=== PATIENT | female | born 1970 | race Caucasian/White ===

== ENCOUNTER 2017-10-28 09:22 | Inpatient (IN) | payer OTHER ==
[~2017-10-28] VITALS: Ht 172.7 cm; Wt 104.3 kg
[2017-10-28] MEDS ORDERED: LR 1,000 ML IV.SOLN IV ONE (14:45)
[2017-10-28] MEDS ORDERED: fentaNYL CITRATE/PF 100 MCG/2 ML AMP IVP ONE (14:45)
[2017-10-28] MEDS ORDERED: fentaNYL CITRATE 250 MCG/5 ML AMP IV ONE (14:45)
[2017-10-28] MEDS ORDERED: SEVOFLURANE 15 MIN GAS INH ONE (14:45)
[2017-10-28] MEDS ORDERED: ROCURONIUM BROMIDE 10 MG/ML (ZEMURON) IV ONE (14:45)
[2017-10-28] MEDS ORDERED: NS IRRIG SOLN 1000 ML IR ONE (14:45)
[2017-10-28] MEDS ORDERED: ONDANSETRON HCL 4 MG/2 ML VIAL IVP ONE (14:45)
[2017-10-28] MEDS ORDERED: BUPIVACAINE LIPOSOME/PF 266 MG/20 ML VIAL INFIL ONE (14:45)
[2017-10-28] MEDS ORDERED: MIDAZOLAM HCL 5 MG/5 ML VIAL IVP ONE (14:45)
[2017-10-28] MEDS ORDERED: PROPOFOL 200MG/ 20ML VIAL (DIPRIVAN) IV ONE (14:45)
[2017-10-28] MEDS ORDERED: NS 100 ML BAG IV ONE (14:45)
[2017-10-28] MEDS ORDERED: LR 1,000 ML IV SCH (16:26)
[2017-10-28] MEDS ORDERED: METOCLOPRAMIDE HCL 10 MG/2 ML VIAL IVP PRN (16:30)
[2017-10-28] MEDS ORDERED: HYDROmorphone 1 MG INJ. 1 MG/ML AMPUL IVP PRN ×3 (16:30→17:30)
[2017-10-28] MEDS ORDERED: HYDROmorphone 2 MG/ML VIAL IVP PRN (16:30)
[2017-10-28] MEDS ORDERED: HYDROcodone/ACETAMIN 5-325 MG TAB (NORCO/ VICODIN) PO PRN (17:30)
[2017-10-28] MEDS ORDERED: ACETAMINOPHEN 325 MG TABLET PO PRN (17:30)
[2017-10-28] MEDS ORDERED: ONDANSETRON HCL 4 MG/2 ML VIAL IVP PRN (17:30)
[2017-10-28] MEDS ORDERED: LISI10TA5 PO (18:10)
[2017-10-28] MEDS: MORPHINE 4 MG/ML INJ. SYRINGE ONE ×2 (18:13→18:25)
[2017-10-28] MEDS ORDERED: MORPHINE 2 MG/ML INJ. SYRINGE IVP PRN (18:15)
[2017-10-28 20:00] VITALS: BP_SYST 151
[2017-10-28] MEDS ORDERED: MORPHINE 4 MG/ML INJ. SYRINGE IVP PRN ×2 (20:00)
[2017-10-28] MEDS ORDERED: KETOROLAC TROMETHAMINE 15 MG VIAL IVP PRN (20:00)
[2017-10-28] MEDS ORDERED: CEFAZOLIN 1 GM IVPB PREMIX 100 ML IV ONE (20:01)
[2017-10-28] MEDS: CEFAZOLIN 1 GM IVPB PREMIX 50 ML IV SCH (20:44)
[2017-10-28 20:46] VITALS: BP_SYST 154
[2017-10-28] MEDS ORDERED: CARISOPRODOL 350 MG TABLET PO PRN (22:15)
[2017-10-28] MEDS ORDERED: LORazepam 2 MG/ML VIAL IVP PRN (22:15)
[2017-10-28] MEDS ORDERED: PANTOPRAZOLE SODIUM 80 MG in NS 100 ML IV ONE (22:15)
[2017-10-28] MEDS ORDERED: MORPHINE SULFATE 10 MG/ML VIAL IVP PRN (22:15)
[2017-10-28] MEDS ORDERED: cloNIDine HCL 0.1 MG TABLET PO PRN (22:15)
[2017-10-28] MEDS ORDERED: PANTOPRAZOLE SODIUM 40 MG/VIAL (PROTONIX) ONE (22:21)
[2017-10-29 00:58] VITALS: BP_SYST 140
[2017-10-29] MEDS: CEFAZOLIN 1 GM IVPB PREMIX 50 ML IV SCH (05:21)
[2017-10-29 06:36] LABS: BASOPHILS % (AUTO) 0.3 % (0.0-2.0); EOSINOPHILS % (AUTO) 0.5 % (0.0-4.0); HEMATOCRIT 32.3 % (36-48); HEMOGLOBIN 10.6 g/dL (12.0-16.0); LYMPHOCYTES # (AUTO) 1.5 K/uL (1.0-5.5); LYMPHOCYTES % (AUTO) 16.8 % (20.5-51.5); MEAN CORPUSCULAR HEMOGLOBIN 27 pg (27-31); MEAN CORPUSCULAR HGB CONC 33 % (32-36); MEAN CORPUSCULAR VOLUME 81 fL (79.0-98.0); MONOCYTES # (AUTO) 0.6 K/uL (0.0-1.0); MONOCYTES % (AUTO) 6.2 % (1.7-9.3); NEUTROPHILS # (AUTO) 6.8 K/uL (1.8-7.7); NEUTROPHILS % (AUTO) 76.2 % (40.0-70.0); PLATELET COUNT (AUTO) 413 K/uL (130-430); RED BLOOD CELL COUNT(AUTO) 4.01 MIL/uL (4.2-6.2); RED CELL DISTRIBUTION WIDTH 17.4 % (9.0-15.0); WHITE BLOOD COUNT (AUTO) 8.9 K/uL (4.8-10.8)
[2017-10-29 06:43] LABS: ALANINE AMINOTRANSFERASE 16 U/L (12-78); ASPARTATE AMINOTRANSFERASE 22 U/L (10-37); CALCIUM 8.3 mg/dL (8.4-11.0); CHLORIDE 107 mmol/L (98-107); CREATININE 0.61 mg/dL (0.55-1.30); GLUCOSE 106 mg/dL (70-99); POTASSIUM 3.8 mmol/L (3.5-5.1); SODIUM SERUM 138 mmol/L (136-145); TOTAL BILIRUBIN 0.5 mg/dL (0.0-1.0); UREA NITROGEN, BLOOD 8 mg/dL (8-21)
[2017-10-29 07:33] LABS: ANION GAP < 3 (5-15); GFR AFRICAN AMERICAN 136 mL/min (>90)
[2017-10-29 08:29] VITALS: BP_SYST 151
[2017-10-29] MEDS ORDERED: PANTOPRAZOLE SODIUM 40 MG/VIAL (PROTONIX) IVP SCH (09:00)
[2017-10-29] MEDS ORDERED: LISINOPRIL 10 MG TABLET (PRINIVIL) PO SCH (09:00)
[2017-10-29 11:20] LABS: TOTAL IRON BIND. CAPACITY 409 ug/dL (250-450)
[2017-10-29 12:03] VITALS: BP_SYST 137
[2017-10-29 12:45] VITALS: BP_SYST 135
== END 2017-10-29 13:30 | disposition home or self-care (01) | DRG 580 ==
LOC: SMU 09:22 → STU 22:23
PROVIDERS: ADMIT Surgery; ATTEND Surgery
PROC: 0WBF0ZZ Excision of Abdominal Wall, Open Approach (ICD-10-PCS; principal; 2017-10-28 11:30)
DX: D17.79 Benign lipomatous neoplasm of other sites (principal); E44.1 Mild protein-calorie malnutrition; E66.01 Morbid (severe) obesity due to excess calories; K58.9 Irritable bowel syndrome, unspecified; D64.9 Anemia, unspecified; G89.4 Chronic pain syndrome; K21.9 Gastro-esophageal reflux disease without esophagitis; M19.90 Unspecified osteoarthritis, unspecified site; G62.9 Polyneuropathy, unspecified; E65 Localized adiposity; I10 Essential (primary) hypertension; Z98.84 Bariatric surgery status; Z90.49 Acquired absence of other specified parts of digestive tract; Z88.2 Allergy status to sulfonamides; Z79.899 Other long term (current) drug therapy; Z68.35 Body mass index [BMI] 35.0-35.9, adult
CPT/HCPCS: 36415; 71045; 80053; 83540-TC; 83550-TC; 85025; 86886; 86900; 86901; 87081; 88304; 93005; C9113; C9290; J0690; J1885; J2250; J2270; J2405; J2704; J3010; J7120